=== PATIENT | female | born 1995 | race Caucasian/White ===

== ENCOUNTER 2022-04-22 16:39 | Observation (INO) | payer MEDICAID, SELFPAY ==
[2022-04-22] VITALS (24 sets, daily range): BP systolic 85–133; BP diastolic 60–91; PULSE 66–121; RESP 15–31; TEMP 36.4–37.4; O2SAT 93–98
--- NOTE | 2022-04-22 16:30 | RT.EKG_ITS ---
APPROVED REPORT Exam: Resting ECG Reason for Exam: chest pain, sob Patient Location: E HR:118 bpm ECG Measurements Heart Rate 118 AXIS [place] 122 P 53 QRSd 78 QRS 74 QT 300 T 38 QTc 421 Conclusion Sinus tachycardia...rate> 99 Low voltage, precordial leads...precordial leads <1.0mV ST elev, probable normal early repol pattern...ST elevation, age<[address] Physician: ST elevation in lateral leads, no recip depression. Q wave in III
--- NOTE | 2022-04-22 17:00 | DI.CT_ITS ---
Exam(s) CT CHEST PE CTA EXAM: CT CHEST PE CTA CLINICAL HISTORY: sob, cp , r/o clot. TECHNIQUE: Imaging Protocol: Axial CT angiography was performed with multi-slice acquisition and mu lti-planar reconstructions as well as axial, coronal and sagittal MIP reconstructions. CONTRAST MATERIAL: Intravenous: Omnipaque 350 Contrast volume:100 ml COMPARISON: No exams were available for comparison FINDINGS: Exam is limited by motion. Pulmonary Arteries: No evidence of filling defect to suggest pulmonary emboli. Tracheobronchial tree: Patent where visualized. Mediastinum and [place]: No dominant adenopathy Pulmonary parenchyma: No consolidation or dominant measurable mass. Pleura: No effusion or pneumothorax. Heart: The heart is not dilated. No coronary artery calcifications are seen. There is a pericardial e ffusion, small to moderate in size. Aorta: Thoracic aorta non-dilated. No aneurysm. No dissection. Upper abdomen: Liver is enlarged with marked fatty infiltration. Question of wall thickening of the distal esophagus. Bones: Unremarkable for age. IMPRESSION: No evidence of pulmonary embolism. Small to moderate-sized pericardial effusion. Question of thickening of the wall of the distal esophagus. RADIATION DOSE DELIVERED: 1,349.41mGy.cm Total DLP DATA REPOSITORY: All CT scans at this facility are submitted to the National Radiology Data Registry (NRDR) Dose Index Registry (DIR) with the [employer] (ACR). RADIATION OPTIMIZATION: All CT scans at this facility use at least one of these dose optimization te chniques: automated exposure control; mA and/or kV adjustment per patient size (includes targeted exa ms where dose is matched to clinical indication); or iterative reconstruction.
[2022-04-22 18:27] LABS: Absolute Eosinophil Count 1.23 10^3/uL (0.0-0.7); Absolute Lymphocyte Count 3.28 10^3/uL (1.2-3.4); Basophils % 0.3; Eosinophils % 8.5; HCT 39.7 % (36.0-46.0); HGB 13.8 g/dL (11.2-15.7); Immature Grans % 0.7; Lymphocytes % 22.7; MCH 29.3 pg (27.0-33.0); MCHC 34.8 % (32.0-36.0); MCV 84 fL (80-95); MPV 9.3 fL (8.0-11.0); Monocytes % 7.1; Neutrophils % 60.7; Platelet Count 427 10^3/uL (130-400); RBC 4.71 10^6/uL (3.93-5.22); RDW 12.6 % (11.7-14.6); RDW-SD 37.8 fL; WBC 14.44 10^3/uL (4.4-10.8)
[2022-04-22 18:28] LABS: Absolute Basophil Count 0.04 10^3/uL (0.0-0.2); Absolute Monocyte Count 1.03 10^3/uL (0.1-0.8); Absolute Neutrophil Count 8.77 10^3/uL (1.2-6.7)
[2022-04-22 18:49] LABS: ALT 118 U/L (14-59); AST 68 U/L (15-37); Albumin 4.1 g/dL (3.4-5.0); Alkaline Phosphatase 101 U/L (46-116); Anion Gap 13.5 mmol/L (3-11); BUN 8 mg/dL (7-18); Bilirubin, Total 0.7 mg/dL (0.2-1.0); CO2 23.5 mmol/L (21.0-32.0); CREATININE 0.8 mg/dL (0.55-1.02); Calcium 9.6 mg/dL (8.5-10.1); Chloride 101 mmol/L (98-107); Estimated GFR 102.22 (mL/min/1.73m2); Glucose 112 mg/dL (74-106); Potassium 3.8 mmol/L (3.5-5.1); Sodium 138 mmol/L (136-145); Total Protein 8.3 g/dL (6.4-8.2)
[2022-04-22 18:51] LABS: Troponin I 5953 ng/L (<or=60)
[2022-04-22 18:52] LABS: Bilirubin Small (Negative); Blood Trace-intact (Negative); Clarity Sl Cloudy (Clear); Glucose Negative (Negative); Ketones Trace mg/dL (Negative); Leukocyte Esterase Negative (Negative); Nitrite Negative (Negative); Specific Gravity >= 1.030 (1.005-1.025); Urobilinogen 0.2 EU/dL (Up TO 0.2)
[2022-04-22] MEDS: Aspirin 81 MG CHEW 324 MG CH (19:04)
[2022-04-22 19:07] LABS: Bacteria Few HPF (Negative); C & S Indicated? No/Sq. Contamination; Crystals Negative HPF (Negative); Epithelial Cells Many HPF (Negative); Mucus Heavy (Negative)
[2022-04-22] MEDS: Normal Saline 1,000 ML 1000 ML IV (19:33)
[2022-04-22] MEDS: Omnipaque 350 MG/ML 100 ML BTL IJ (19:51)
[2022-04-22] MEDS: Normal Saline Flush 10 ML SYR IVP (19:51)
[2022-04-22] MEDS: nitroGLYcerin 0.4 MG TAB (19:54)
[2022-04-22 20:25] LABS: Troponin I 5649 ng/L (<or=60)
[2022-04-22] MEDS: MORPHine 4 MG/ML SYR IVP (20:52)
[2022-04-22] MEDS: cefTRIAXone 2 GM/50 ML BAG IVPB (20:52)
--- NOTE | 2022-04-22 21:00 | RT.EKG_ITS ---
APPROVED REPORT Exam: Resting ECG Reason for Exam: vagal episode Patient Location: E HR:100 bpm ECG Measurements Heart Rate 100 AXIS [place] 129 P 83 QRSd 80 QRS 82 QT 337 T 59 QTc 435 Conclusion Sinus tachycardia...rate> 99 Physician: minimal elevation in inferior and lateral leads, likely pericarditis related. no recip dep ressions
--- NOTE | 2022-04-22 21:15 | W.ED.GENAD ---
Discharge Plan Disposition Patient Disposition: [facility] INPATIENT Condition: Serious Discharge Details Chief Complaint: RespSymp Clinical Impression: Non-ST elevation AR (NSTEMI), Myocarditis, Pericarditis Admit Date/Time: 04/22/22 22:46 Admit Provider: Soren Oseguera Attending Provider: Soren Oseguera Primary Care Provider: Unknown,Unknown ED Provider: Amauri Calhoun Discharge Data Discharge Date/Time-TO BE ENTERED AT DEPARTURE: 04/22/22 23:14 Medical Decision Making This is a 27-year-old female with no significant past medical history aside for hypertension and mood disorder for which she takes lithium, who presents today for chest pain and shortness of breath. Patient states that about 4 days ago she developed the symptoms, at the same time she had some swelling in her right leg. At that time she went to [facility], and while there she had a work-up. Per the patient her D-dimer was positive, but they did an ultrasound of her lower extremity which showed no evidence of DVT. Unfortunately she was a challenging IV stick and they were not able to get an IV for CTA for chest. Patient eventually left the emergency department. Her chest pain and shortness of breath continued, and she came to [facility] today for further assessment. Pain is made worse with breathing. Shortness of breath is made worse with activity. Pain is made worse when lying back. Minimally improved by sitting up. She denies any vomiting or diarrhea. She does have a family history positive for pulmonary emboli from her mother. She denies any personal history of blood clots. Family history of cardiac disease is present but not at a young age. She denies any recent long trips surgeries or procedures. She does not use exogenous estrogen. She denies any recent flulike symptoms, runny nose or congestion. Exam is relatively unremarkable, there is mild chest wall tenderness, but lungs are otherwise clear. No Osler nodes or Janeway lesions. No signs of an upper respiratory infection. No sore throat runny nose or congestion. No calf tenderness. Patient's heart rate is notably elevated, initially she was in the 140s to 150s when she arrived. EKG shows sinus rhythm with somewhat diffuse ST elevations, but does not meet criterion for STEMI with no evidence of reciprocal depressions of significance. Symptoms appear slightly more consistent with pericarditis on EKG however EKG findings are still concerning. Differential includes pulmonary embolism, pericarditis, potentially myocarditis with her elevated heart rate, and less likely ACS. Patient denies any IV or illicit drug use whatsoever. We will evaluate for these etiologies, monitor closely and reassess. Patient's work-up has returned, with some notably unexpected results. CTA is negative for anything of significance aside from mild esophagitis. No evidence of pulmonary embolism. White count is elevated at 14. Platelets are slightly high. No bandemia. Mild left shift. No lymphocytosis. Electrolytes normal, renal function good. Mild transaminitis. Troponin notably elevated at 5900. Urinalysis does appear to be dirty but does have elevated white cells. Potential concern for infection. Will give broad-spectrum antibiotics secondary to the patient's notably ill nature and administer Zosyn. Repeat EKG showed slight normalization's of some of the ST elevations. [facility] cardiology was consulted and I discussed the case with Dr. Terry. He does agree with aspirin and heparinization. Recommends echo and cardiac MRI if available. COVID test is negative. Patient's heart rate improved with fluids, pain did slightly improve with aspirin but minimally. Symptoms at this time with a notably elevated troponin are most concerning for myocarditis with potential pericarditis. Uncertain as to what etiology started is still. We did contact both [facility] and [facility] after transfer, and neither facility is able to accept at this time. [facility] cardiology does feel that admission at our hospital would be reasonable however transfer should be we discussed if the patient's clinical status changes or worsens. Discussed the case with Dr. Oseguera, he agrees with the assessment and plan and will admit. I have extensively reviewed the treatment plan with the patient. I have addressed all patient concerns at this time. I have also discussed the plan with the admitting physician and they agree with the current assessment and plan and have agreed to assume responsibility for the patient. All parties demonstrate verbal understanding and agreement with our assessment and plan at this time. The documentation in this chart was dictated using [employer] dictation software. Please excuse any dictation errors. HPI General Date/Time Provider Initiated Documentation: 04/22/22 17:07. HPI Narrative: This is a 27-year-old female with no significant past medical history aside for hypertension and mood disorder for which she takes lithium, who presents today for chest pain and shortness of breath. Patient states that about 4 days ago she developed the symptoms, at the same time she had some swelling in her right leg. At that time she went to [facility], and while there she had a work-up. Per the patient her D-dimer was positive, but they did an ultrasound of her lower extremity which showed no evidence of DVT. Unfortunately she was a challenging IV stick and they were not able to get an IV for CTA for chest. Patient eventually left the emergency department. Her chest pain and shortness of breath continued, and she came to [facility] today for further assessment. Pain is made worse with breathing. Shortness of breath is made worse with activity. Pain is made worse when lying back. Minimally improved by sitting up. She denies any vomiting or diarrhea. She does have a family history positive for pulmonary emboli from her mother. She denies any personal history of blood clots. Family history of cardiac disease is present but not at a young age. She denies any recent long trips surgeries or procedures. She does not use exogenous estrogen. She denies any recent flulike symptoms, runny nose or congestion. Related Data Allergies Allergy/AdvReac Type Severity Reaction Status Date / Time No Known Allergies Allergy Unverified 04/23/22 06:23 General Stated Complaint: RespSymp MIMI: 2 Review of Systems All systems reviewed & are unremarkable except as noted in HPI and below PFSH All Active Problems (Updated 04/23/22 @ 14:55 by Amauri Calhoun DO) Non-ST elevation AR (NSTEMI) (Acute) Myocarditis (Acute) Pericarditis (Acute) Chest pain (Acute) Medical History Hypertension Family History Mother Diabetes Father Diabetes Other Hyperlipidemia Hypertension Social History Smoking/Tobacco Use Status: Never Smoking risk assessment performed?: Yes Alcohol Intake: never Substance use type: does not use Do you feel safe at home: Yes Do you feel safe in your relationship?: Yes Exam Narrative Exam Narrative: 1.Const: Well-nourished, Well-developed, appearing stated age 2.Eyes: PERRL, no conjunctival injection, and symmetrical lids. 3.ENT: Atraumatic external nose and ears. Moist MM. Neck: Symmetric, trachea midline, No thyromegaly. 4.CVS: +S1/S2, No murmurs or gallops. Peripheral pulses 2+ and equal in all extremities. Brisk capillary refill in all extremities. 5.RESP: Unlabored respiratory effort. Clear to auscultation bilaterally. No wheezes rales or rhonchi. Anterior chest wall tenderness on palpation to the left of the sternum. 6.GI: Soft, Nontender/Nondistended, No hepatosplenomegaly. No guarding or rebound. 7.MSK: Normocephalic/Atraumatic, Extremities w/o deformity or ttp No cyanosis or clubbing, Normal movement of all extremities. No significant pitting edema in the lower extremities. No calf tenderness bilaterall Mild reproducibley. 8.Skin: Warm, Dry. No rashes or lesions. No evidence of Osler nodes or Janeway lesions. 9.Neuro: circular shear operator II-XII grossly intact. Sensation grossly intact, no focal neurologic deficits. 10.Psych: (AAO) x3. Appropriate mood and affect Course Vital Signs Vital signs: Vital Signs Temperature 36.4 C L 04/22/22 16:44 Pulse 121 H 04/22/22 16:44 Respiratory Rate 20 04/22/22 16:44 Blood Pressure 105/91 H 04/22/22 16:44 Pulse Oximetry 97 04/22/22 16:44 Temperature 37.4 C 04/22/22 17:11 Temperature Source Skin 04/22/22 17:11 Pulse 120 H 04/22/22 17:11 Respiratory Rate 24 04/22/22 17:11 Respiratory Effort Non-Labored 04/22/22 21:13 Respiratory Depth Normal 04/22/22 18:43 Respiratory Pattern Normal 04/22/22 18:43 Blood Pressure 131/77 04/22/22 17:11 Blood Pressure Position Sitting 04/22/22 16:44 Pulse Oximetry 95 04/22/22 17:11 Oxygen Delivery Method Room Air 04/22/22 18:43 Oxygen Flow Rate 0 04/22/22 18:43 Pain Level 7 04/22/22 20:52 Lab/Test Results Lab/Test Results: Laboratory Tests Range/Units 04/22/22 04/22/22 04/22/22 18:00 18:00 18:30 WBC (4.4-10.8) 10^3/uL 14.44 H RBC (3.93-5.22) 10^6/uL 4.71 Hgb (11.2-15.7) g/dL 13.8 Hct (36.0-46.0) % 39.7 MCV (80-95) fL 84 MCH (27.0-33.0) pg 29.3 MCHC (32.0-36.0) % 34.8 RDW (11.7-14.6) % 12.6 Plt Count (130-400) 10^3/uL 427 H MPV (8.0-11.0) fL 9.3 Immature Gran % 0.7 Neutrophils % 60.7 Lymphocytes % 22.7 Monocytes % 7.1 Eosinophils % 8.5 Basophils % 0.3 Nucleated RBC % (0.0-0.3) % 0.0 Absolute Neutrophils (1.2-6.7) 10^3/uL 8.77 H Absolute Lymphocytes (1.2-3.4) 10^3/uL 3.28 Absolute Monocytes (0.1-0.8) 10^3/uL 1.03 H Absolute Eosinophils (0.0-0.7) 10^3/uL 1.23 H Absolute Basophils (0.0-0.2) 10^3/uL 0.04 Sodium (136-145) mmol/L 138 Potassium (3.5-5.1) mmol/L 3.8 Chloride (98-107) mmol/L 101 Carbon Dioxide (21.0-32.0) mmol/L 23.5 Anion Gap (3-11) mmol/L 13.5 H BUN (7-18) mg/dL 8 Creatinine (0.55-1.02) mg/dL 0.8 Est GFR (CKD-EPI 2020) (mL/min/1.73m2) 102.22 Glucose (74-106) mg/dL 112 H Calcium (8.5-10.1) mg/dL 9.6 Total Bilirubin (0.2-1.0) mg/dL 0.7 AST (15-37) U/L 68 H ALT (14-59) U/L 118 H Alkaline Phosphatase (46-116) U/L 101 Troponin I (<or=60) ng/L 5953 H* Total Protein (6.4-8.2) g/dL 8.3 H Albumin (3.4-5.0) g/dL 4.1 Urine Color (Yellow) Dian Urine Clarity (Clear) Sl Cloudy Urine pH (5-8) 6.0 Ur Specific [place] (1.005-1.025) >= 1.030 H Urine Protein (Negative) mg/dL 30 H Urine Ketones (Negative) mg/dL Trace H Urine Blood (Negative) Trace-intact H Urine Nitrite (Negative) Negative Urine Bilirubin (Negative) Small H Urine Urobilinogen (Up TO 0.2) EU/dL 0.2 Ur Leukocyte Esterase (Negative) Negative Urine RBC (0-2) HPF 10-20 H Urine WBC (0-5) HPF 10-20 H Ur Epithelial Cells (Negative) HPF Many Urine Crystals (Negative) HPF Negative Urine Bacteria (Negative) HPF Few Urine Mucus (Negative) Heavy Ur Culture Indicated? No/Sq. Contamination Urine Glucose (Negative) mg/dL Negative Range/Units 04/22/22 19:47 WBC (4.4-10.8) 10^3/uL RBC (3.93-5.22) 10^6/uL Hgb (11.2-15.7) g/dL Hct (36.0-46.0) % MCV (80-95) fL MCH (27.0-33.0) pg MCHC (32.0-36.0) % RDW (11.7-14.6) % Plt Count (130-400) 10^3/uL MPV (8.0-11.0) fL Immature Gran % Neutrophils % Lymphocytes % Monocytes % Eosinophils % Basophils % Nucleated RBC % (0.0-0.3) % Absolute Neutrophils (1.2-6.7) 10^3/uL Absolute Lymphocytes (1.2-3.4) 10^3/uL Absolute Monocytes (0.1-0.8) 10^3/uL Absolute Eosinophils (0.0-0.7) 10^3/uL Absolute Basophils (0.0-0.2) 10^3/uL Sodium (136-145) mmol/L Potassium (3.5-5.1) mmol/L Chloride (98-107) mmol/L Carbon Dioxide (21.0-32.0) mmol/L Anion Gap (3-11) mmol/L BUN (7-18) mg/dL Creatinine (0.55-1.02) mg/dL Est GFR (CKD-EPI 2020) (mL/min/1.73m2) Glucose (74-106) mg/dL Calcium (8.5-10.1) mg/dL Total Bilirubin (0.2-1.0) mg/dL AST (15-37) U/L ALT (14-59) U/L Alkaline Phosphatase (46-116) U/L Troponin I (<or=60) ng/L 5649 H* Total Protein (6.4-8.2) g/dL Albumin (3.4-5.0) g/dL Urine Color (Yellow) Urine Clarity (Clear) Urine pH (5-8) Ur Specific [place] (1.005-1.025) Urine Protein (Negative) mg/dL Urine Ketones (Negative) mg/dL Urine Blood (Negative) Urine Nitrite (Negative) Urine Bilirubin (Negative) Urine Urobilinogen (Up TO 0.2) EU/dL Ur Leukocyte Esterase (Negative) Urine RBC (0-2) HPF Urine WBC (0-5) HPF Ur Epithelial Cells (Negative) HPF Urine Crystals (Negative) HPF Urine Bacteria (Negative) HPF Urine Mucus (Negative) Ur Culture Indicated? Urine Glucose (Negative) mg/dL POC- Test(urine) Negative Procedures EJ/Peripheral Line Arm R: Time Out Performed: Yes Skin Cleansed in Sterile Fashion: Yes Size (gauge): 20 IV Secured and Dressing Applied: Yes Patient Tolerated Procedure: well and no complications Additional Comments: Candidate vein examined with linear array probe - confirmed collapsibility, lack of pulsatility, and proper anatomic location. Using aseptic technique, IV catheter inserted with flash of blood noted, flow of venous blood confirmed. Flushes easily and without pain. No hematoma or complications noted. IV secured. Patient tolerated well. Critical Care Time Critical Care Time Critical Care Time: Yes Total Critical Care Time: 45 Attestation: Upon my evaluation, this patient had a high probability of imminent or life-threatening deterioration, which required my direct attention, intervention, and personal management. I have personally provided 45 minutes of critical care time exclusive of time spent on separately billable procedures. Time includes review of laboratory data, radiology results, discussion with consultants, and monitoring for potential decompensation. Interventions were performed as documented.
--- NOTE | 2022-04-22 21:16 | DI.VRAD_ITS ---
PROCEDURE INFORMATION: Exam: CTA Chest With Contrast Exam date and time: 04/22/2022 7:55 PM Age: 27 years old Clinical indication: Other: SOB, cp, R/O clot TECHNIQUE: Imaging protocol: Computed tomographic angiography of the chest with contrast. 3D rendering (Not supervised by radiologist): MIP and/or 3D reconstructed images were created by the technologist. Radiation optimization: All CT scans at this facility use at least one of these dose optimization techniques: automated exposure control; mA and/or kV adjustment per patient size (includes targeted exams where dose is matched to clinical indication); or iterative reconstruction. Contrast material: OMNIPAQUE 350; Contrast volume: 150 ml; Contrast route: INTRAVENOUS (IV); COMPARISON: No relevant prior studies available. FINDINGS: Pulmonary arteries: Normal. No pulmonary emboli. Aorta: Unremarkable. No aortic aneurysm. No aortic dissection. Lungs: Unremarkable. No consolidation. No masses. Pleural spaces: Unremarkable. No pneumothorax. No pleural effusion. Heart: Mild cardiomegaly. Small pericardial effusion. No coronary artery calcification. Mediastinal space: Mild distal esophageal wall thickening, suggestive of esophagitis. Lymph nodes: Unremarkable. No enlarged lymph nodes. Bones/joints: Unremarkable. No acute fracture. Soft tissues: Unremarkable. IMPRESSION: 1. Mild distal esophageal wall thickening, suggestive of esophagitis. 2. Small pericardial effusion. Dictated and Authenticated by: Soren Jimenes MD. Ordering:ODETTE Baugh MD
[2022-04-22] MEDS: PIPERACILLIN/TAZO 3.375 GM in Normal Saline 50 ML IVPB (22:20)
[2022-04-22 22:28] LABS: PTT Activated 25.4 sec (21.0-27.5)
--- NOTE | 2022-04-22 22:32 | HPE_ITS ---
Date of service: 04/22/22 Time of Service: 22:32 Assessment and Plan Assessment and plan (1) Chest pain: Status: Acute Assessment and plan: Not entirely clear at this point but I believe that myopericarditis is the most likely diagnosis here, presumably, or at least most likely, of viral origin.. Will trend troponins, obtain ECHO and, if available, cardiac MRI and treat with full dose NSAIDs empirically. Per [facility] will continue heparin in the unlikely event this constitutes ACS, but the overall clinical picture suggests not. History of Present Illness History of Present Illness Chief Complaint: CP Narrative: 27 female seen [place] 3 days [employer] for SOB, left w/o diagnosis she states. Returns here with 2 days of chest pain, described variably as a tightness or pressure, worse with recumbency. No SOB at this point. W/U in ER of note for EKG showing concave downward ST elevations inferiorly and in V6, with flattening TW V1-2 (no prior) and troponin 5900. CTA negative for PE, shows small pericardial effusion. Case reveiwed with [facility] cardiology advises heparin, trend trop and cardiac MRI and ECHO. I was asked to evaluate for admission. Patient is unvaccinated, COVID is pending. Patient states she took Motrin 600 at home with good relief, albeit temporary. Here in ER received NTG w/o effect, the MS, which caused a vagal reaction. Also received dose of Zosyn for pyuria, though squamous contamination. No urinary symptoms. Review of Systems Narrative: per HPI PFSH All Active Problems (Updated 04/22/22 @ 22:42 by Soren Oseguera MD) Chest pain (Acute) Medical History Hypertension Family History Mother Diabetes Father Diabetes Other Hyperlipidemia Hypertension Social History Smoking/Tobacco Use Status: Never Smoking risk assessment performed?: Yes Alcohol Intake: never Substance use type: does not use Do you feel safe at home: Yes Do you feel safe in your relationship?: Yes Exam Narrative Exam Narrative: 122/72, 107, 37.4, 28, 95% RA. HEENT atraumatic; neck supple; lungs clear; heart tachy/regular, sounds obscured by ambient noise; abdomen soft and NT; ext remities w/o edema; neuro Ox3, non-focal Results Labs Result diagrams: 04/22/22 18:00 04/22/22 18:00 Labs: Laboratory Results - last 24 hr 04/22/22 04/22/22 04/22/22 18:00 18:00 18:15 WBC 14.44 H RBC 4.71 Hgb 13.8 Hct 39.7 MCV 84 MCH 29.3 MCHC 34.8 RDW 12.6 Plt Count 427 H MPV 9.3 Immature Gran % 0.7 Neutrophils % 60.7 Lymphocytes % 22.7 Monocytes % 7.1 Eosinophils % 8.5 Basophils % 0.3 Nucleated RBC % 0.0 Absolute Neutrophils 8.77 H Absolute Lymphocytes 3.28 Absolute Monocytes 1.03 H Absolute Eosinophils 1.23 H Absolute Basophils 0.04 APTT 25.4 Sodium 138 Potassium 3.8 Chloride 101 Carbon Dioxide 23.5 Anion Gap 13.5 H BUN 8 Creatinine 0.8 Est GFR (CKD-EPI 2020) 102.22 Glucose 112 H Calcium 9.6 Total Bilirubin 0.7 AST 68 H ALT 118 H Alkaline Phosphatase 101 Troponin I 5953 H* Total Protein 8.3 H Albumin 4.1 Urine Color Urine Clarity Urine pH Ur Specific [place] Urine Protein Urine Ketones Urine Blood Urine Nitrite Urine Bilirubin Urine Urobilinogen Ur Leukocyte Esterase Urine RBC Urine WBC Ur Epithelial Cells Urine Crystals Urine Bacteria Urine Mucus Ur Culture Indicated? Urine Glucose COVID-19 Source 04/22/22 04/22/22 04/22/22 18:30 19:47 21:50 WBC RBC Hgb Hct MCV MCH MCHC RDW Plt Count MPV Immature Gran % Neutrophils % Lymphocytes % Monocytes % Eosinophils % Basophils % Nucleated RBC % Absolute Neutrophils Absolute Lymphocytes Absolute Monocytes Absolute Eosinophils Absolute Basophils APTT Sodium Potassium Chloride Carbon Dioxide Anion Gap BUN Creatinine Est GFR (CKD-EPI 2020) Glucose Calcium Total Bilirubin AST ALT Alkaline Phosphatase Troponin I 5649 H* Total Protein Albumin Urine Color Dian Urine Clarity Sl Cloudy Urine pH 6.0 Ur Specific [place] >= 1.030 H Urine Protein 30 H Urine Ketones Trace H Urine Blood Trace-intact H Urine Nitrite Negative Urine Bilirubin Small H Urine Urobilinogen 0.2 Ur Leukocyte Esterase Negative Urine RBC 10-20 H Urine WBC 10-20 H Ur Epithelial Cells Many Urine Crystals Negative Urine Bacteria Few Urine Mucus Heavy Ur Culture Indicated? No/Sq. Contamination Urine Glucose Negative COVID-19 Source Nasopharynx Last Vital Signs Temp 37.4 C 04/22/22 17:11 Pulse 107 H 04/22/22 21:31 Resp 28 H 04/22/22 21:31 BP 122/72 04/22/22 21:31 Pulse Ox 95 04/22/22 21:14
[2022-04-22 22:35] LABS: Source Nasopharynx
[2022-04-22 23:07] LABS: COVID-19 PCR Negative (Negative)
[2022-04-23] VITALS (51 sets, daily range): BP systolic 112–120; BP diastolic 67–93; PULSE 72–115; RESP 14–18; TEMP 35.9–36.8; O2SAT 96–98
[2022-04-23] MEDS: LORazepam 1 MG TAB PO (00:11)
--- NOTE | 2022-04-23 07:00 | RT.EKG_ITS ---
APPROVED REPORT Exam: Resting ECG Reason for Exam: Patient Location: I HR:107 bpm ECG Measurements Heart Rate 107 AXIS [place] 122 P 57 QRSd 82 QRS 73 QT 315 T 49 QTc 421 Conclusion Sinus tachycardia...rate> 99 Borderline Q waves in inferior leads...Qs add to 80 mS in II III aVF Minimal ST depression...ST <-0.05mV in [address] elevation, inferior leads...ST >0.06mV, II III aVF
[2022-04-23 07:15] LABS: PTT Activated 29.6 sec (21.0-27.5)
[2022-04-23 07:29] LABS: Troponin I 4718 ng/L (<or=60)
[2022-04-23] MEDS: Ibuprofen 800 MG TAB PO ×2 (08:39→13:42)
--- NOTE | 2022-04-23 10:09 | NUR.NOTE ---
Offered patient things to do AM care with. Patient politely refused at this time as her is going to bring things for her to use a little later on today. RN notified. Nursing Note:
[2022-04-23] MEDS: Normal Saline 1,000 ML 1000 ML IV (13:31)
[2022-04-23] MEDS: Colchicine 0.6 MG TAB 1.2 MG PO (13:42)
--- NOTE | 2022-04-23 14:06 | W.PM.DS.N ---
Date of service: 04/23/22 Time of Service: 14:06 DS: Diagnosis Discharge Diagnosis (1) Chest pain: Status: Acute Discharge Plan Disposition Patient Disposition: [facility] Condition: Serious Discharge Details Reason For Visit: Pericarditis, Myocarditis, Pericardial Effusion Admit Date/Time: 04/22/22 22:46 Admit Provider: Soren Oseguera Attending Provider: Soren Oseguera Primary Care Provider: Unknown,Unknown Hospital Course Hospital Course: This is a 27 female seen at [facility] ED 3 days [employer] for SOB, left w/o diagnosis she states. Presented to [facility] with 2 days of chest pain, described variably as a tightness/pleuritic or pressure that worseened with recumbency. No SOB at the time of presentation here. W/U in ER of note for EKG showing concave downward ST elevations inferiorly and in V6, with flattening TW V1-2 (no prior) and troponin 5900. CTA negative for PE but showed small pericardial effusion. Case reveiwed with [facility] [place] [place] cardiology advises heparin, trend trop and cardiac MRI and ECHO. Patient is unvaccinated, COVID was negative. Vital Signs Temperature ?36.4 C L ?04/22/22 16:44 Pulse ?121 H ?04/22/22 16:44 Respiratory Rate ?20 ?04/22/22 16:44 Blood Pressure ?105/91 H ?04/22/22 16:44 Pulse Oximetry ?97 ?04/22/22 16:44 WBC count 14.4. Hgb 13.8. Plt 427. Normal electrolytes. Creatinine 0.8. AST 68 ALT 118. Troponin 5953 > 5649 > 4718. Echocardiogram: Technically difficult study. Tachycardic during the study (110bpm). Moderate sized circumferential pericardial effusion. RA is not well seen. RV does appear to have impairment to diastolic filling in subcostal views. Significant variation in mitral inflow (34%) and IVC is borderline dilated (2.1cm) with minimal respiratory variation. Overall, the findings are concerning for early tamponade physiology. Left ventrical is normal in size and function with a LVEF of 57%. Patient stated she took Motrin 600 at home with good relief, albeit temporary. Here in ED received NTG w/o effect, then MS, which caused a vagal reaction. Also received dose of Zosyn for pyuria, though squamous contamination. No urinary symptoms. Zosyn not continued. Discussed patient with [facility] [place] [place] cardiology who recommended colchicine which was initiated (1.2mg po given with another schedule 12 hours later, then 0.6 daily). She also received another 1L NS bolus (2L administered in the ED). No bed available at [facility] [place] [place]. Discussed patient with Hospitalist physician at [place], [place]. A bed was available and she will be transferred for further care. DS: Summary Time Spent with Patient providing and/or coordinating discharge services: Greater than 30 minutes Status at Discharge Functional status at discharge: independent ambulation Overall status at discharge: patient is not back to baseline Mental Status: mental status grossly normal Speech and Movement: speech and movement normal Mood: anxious mood Affect: normal affect Exam Narrative Exam Narrative: Lying in bed. Pleasant and conversant. Const General: cooperative and no acute distress Nutritional Appearance: obese Orientation: alert and oriented x3 Eyes General: appearance normal, both eyes and all related structures Sclera: sclerae normal Neck Neck: no JVD Resp Effort & Inspection: normal respiratory effort Auscultation: clear to auscultation bilaterally Cardio Rate: tachycardic Rhythm: regular rhythm Heart Sounds: S1 normal, S2 normal, no murmurs and no rubs GI Inspection: obesity Palpation: soft and nontender Extrem General: no pedal edema and no calf tenderness Psych Appearance: grossly normal Mental Status: mental status grossly normal Speech and Movement: speech and movement normal Mood: anxious mood Affect: normal affect DS: Data Vitals/I&O Vitals and I&O: Vital Signs Temperature 36.7 C 04/23/22 12:00 Temperature Source Temporal Artery Scan 04/23/22 12:00 Pulse 115 H 04/23/22 12:00 Pulse 107 H 04/23/22 11:23 Respiratory Rate 14 04/23/22 08:00 Respiratory Effort 04/23/22 12:00 Respiratory Depth Normal 04/22/22 23:40 Respiratory Pattern Normal 04/23/22 12:00 Blood Pressure 118/93 H 04/23/22 11:23 Blood Pressure Mean 98 04/23/22 11:23 Blood Pressure Position Supine 04/23/22 12:00 Pulse Oximetry 96 04/23/22 08:00 Oxygen Delivery Method Room Air 04/23/22 08:00 Oxygen Flow Rate 0 04/23/22 08:00 Pain Level 2 04/23/22 12:00 Intake & Output 04/22/22 04/23/22 04/23/22 23:59 11:59 23:59 Intake Total 1094 / 1094 386.908 / 1207.458 820.55 / 1207.458 Balance 1094 / 1094 386.908 / 1207.458 820.55 / 1207.458 Weight 123.5 kg 123.5 kg Intake: IV 1094 / 1094 186.908 / 257.458 70.55 / 257.458 Oral 200 / 950 750 / 950 Data Completed and Pending Labs on day of discharge: Labs from last 24 hours 04/23/22 04/23/22 04/23/22 Unknown 13:30 12:30 WBC RBC Hgb Hct MCV MCH MCHC RDW Plt Count MPV Immature Gran % Neutrophils % Lymphocytes % Monocytes % Eosinophils % Basophils % Nucleated RBC % Absolute Neutrophils Absolute Lymphocytes Absolute Monocytes Absolute Eosinophils Absolute Basophils APTT Cancelled Sodium Potassium Chloride Carbon Dioxide Anion Gap BUN Creatinine Est GFR (CKD-EPI 2020) Glucose Calcium Total Bilirubin AST ALT Alkaline Phosphatase Troponin I C-Reactive Protein Pending Total Protein Albumin Urine Color Urine Clarity Urine pH Ur Specific [place] Urine Protein Urine Ketones Urine Blood Urine Nitrite Urine Bilirubin Urine Urobilinogen Ur Leukocyte Esterase Urine RBC Urine WBC Ur Epithelial Cells Urine Crystals Urine Bacteria Urine Mucus Ur Culture Indicated? Urine Glucose KRISHAN Titer Pending KRISHAN Titer 2 Pending KRISHAN Titer 3 Pending KRISHAN Interpretation Pending COVID-19 Source SARS-CoV-2 (PCR) 04/23/22 04/23/22 04/22/22 06:25 06:25 21:50 WBC RBC Hgb Hct MCV MCH MCHC RDW Plt Count MPV Immature Gran % Neutrophils % Lymphocytes % Monocytes % Eosinophils % Basophils % Nucleated RBC % Absolute Neutrophils Absolute Lymphocytes Absolute Monocytes Absolute Eosinophils Absolute Basophils APTT 29.6 H Sodium Potassium Chloride Carbon Dioxide Anion Gap BUN Creatinine Est GFR (CKD-EPI 2020) Glucose Calcium Total Bilirubin AST ALT Alkaline Phosphatase Troponin I 4718 H* C-Reactive Protein Total Protein Albumin Urine Color Urine Clarity Urine pH Ur Specific [place] Urine Protein Urine Ketones Urine Blood Urine Nitrite Urine Bilirubin Urine Urobilinogen Ur Leukocyte Esterase Urine RBC Urine WBC Ur Epithelial Cells Urine Crystals Urine Bacteria Urine Mucus Ur Culture Indicated? Urine Glucose KRISHAN Titer KRISHAN Titer 2 KRISHAN Titer 3 KRISHAN Interpretation COVID-19 Source Nasopharynx SARS-CoV-2 (PCR) Negative 04/22/22 04/22/22 04/22/22 19:47 18:30 18:15 WBC RBC Hgb Hct MCV MCH MCHC RDW Plt Count MPV Immature Gran % Neutrophils % Lymphocytes % Monocytes % Eosinophils % Basophils % Nucleated RBC % Absolute Neutrophils Absolute Lymphocytes Absolute Monocytes Absolute Eosinophils Absolute Basophils APTT 25.4 Sodium Potassium Chloride Carbon Dioxide Anion Gap BUN Creatinine Est GFR (CKD-EPI 2020) Glucose Calcium Total Bilirubin AST ALT Alkaline Phosphatase Troponin I 5649 H* C-Reactive Protein Total Protein Albumin Urine Color Dian Urine Clarity Sl Cloudy Urine pH 6.0 Ur Specific [place] >= 1.030 H Urine Protein 30 H Urine Ketones Trace H Urine Blood Trace-intact H Urine Nitrite Negative Urine Bilirubin Small H Urine Urobilinogen 0.2 Ur Leukocyte Esterase Negative Urine RBC 10-20 H Urine WBC 10-20 H Ur Epithelial Cells Many Urine Crystals Negative Urine Bacteria Few Urine Mucus Heavy Ur Culture Indicated? No/Sq. Contamination Urine Glucose Negative KRISHAN Titer KRISHAN Titer 2 KRISHAN Titer 3 KRISHAN Interpretation COVID-19 Source SARS-CoV-2 (PCR) 04/22/22 04/22/22 18:00 18:00 WBC 14.44 H RBC 4.71 Hgb 13.8 Hct 39.7 MCV 84 MCH 29.3 MCHC 34.8 RDW 12.6 Plt Count 427 H MPV 9.3 Immature Gran % 0.7 Neutrophils % 60.7 Lymphocytes % 22.7 Monocytes % 7.1 Eosinophils % 8.5 Basophils % 0.3 Nucleated RBC % 0.0 Absolute Neutrophils 8.77 H Absolute Lymphocytes 3.28 Absolute Monocytes 1.03 H Absolute Eosinophils 1.23 H Absolute Basophils 0.04 APTT Sodium 138 Potassium 3.8 Chloride 101 Carbon Dioxide 23.5 Anion Gap 13.5 H BUN 8 Creatinine 0.8 Est GFR (CKD-EPI 2020) 102.22 Glucose 112 H Calcium 9.6 Total Bilirubin 0.7 AST 68 H ALT 118 H Alkaline Phosphatase 101 Troponin I 5953 H* C-Reactive Protein Total Protein 8.3 H Albumin 4.1 Urine Color Urine Clarity Urine pH Ur Specific [place] Urine Protein Urine Ketones Urine Blood Urine Nitrite Urine Bilirubin Urine Urobilinogen Ur Leukocyte Esterase Urine RBC Urine WBC Ur Epithelial Cells Urine Crystals Urine Bacteria Urine Mucus Ur Culture Indicated? Urine Glucose KRISHAN Titer KRISHAN Titer 2 KRISHAN Titer 3 KRISHAN Interpretation COVID-19 Source SARS-CoV-2 (PCR) PFSH All Active Problems Chest pain (Acute) Medical History Hypertension Family History Mother Diabetes Father Diabetes Other Hyperlipidemia Hypertension Social History Smoking/Tobacco Use Status: Never Smoking risk assessment performed?: Yes Alcohol Intake: never Substance use type: does not use Do you feel safe at home: Yes Do you feel safe in your relationship?: Yes
--- NOTE | 2022-04-23 16:00 | RT.EKG_ITS ---
APPROVED REPORT Exam: Resting ECG Reason for Exam: CP Patient Location: I HR:102 bpm ECG Measurements Heart Rate 102 AXIS NM 133 P 71 QRSd 81 QRS 79 QT 326 T 47 QTc 425 Conclusion Sinus tachycardia...rate> 99 Borderline Q waves in inferior leads...Qs add to 80 mS in II III aVF
--- NOTE | 2022-04-23 16:10 | CHAPLAIN ---
I had a brief visit with Martha. She is originally from the [facility], and moved to [place] after she got because her is from there. She was on the phone with him telling him where he could find some of her clothes that she wanted him to bring in. Martha was pleasant and seemed to be comfortable being here. I will continue to visit.
[2022-04-23] MEDS: Ondansetron 4 MG/2 ML VIAL IVP (16:14)
[2022-04-23] MEDS: LORazepam 20 MG/10 ML VIAL IVP (16:16)
[2022-04-23 17:16] LABS: Troponin I 5066 ng/L (<or=60)
[2022-04-23 18:13] LABS: C-Reactive Protein 1.77 mg/dL (0.0-0.3)
--- NOTE | 2022-04-23 18:43 | PDOC.CMIN ---
- If Service Date Differs Date of service: 04/23/22 Time of Service: 18:43 Care Management Initial Assess REASON FOR HOSPITALIZATION:: Chest Pain PAST MEDICAL HISTORY/PAST SURGICAL HISTORY:: All Active Problems. Chest pain (Acute). Medical History. Hypertension PREVIOUS FUNCTIONAL STATUS/SOCIAL/FAMILY SUPPORTS:: Martha lives in [place] with her , Vince, and their four children who are 9, 4, 2, and 10months. 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 She is independent at baseline. CURRENT FUNCTIONAL STATUS:: Martha was lying in bed when CM met with her. She reported that she is not feeling well and is waiting to hear the results from her echo this morning. Per MD, she has been accepted in transfer to [facility], and will transport via EMS once a team is available. Martha stated that [facility] would have been her first choice, but she is happy to be able to transfer to get the care she needs, as it is not offered at [facility]. CM brought her a puzzle book and coloring pages to occupy her time, as she reported feeling anxious about waiting. CM will continue to follow. ADVANCE DIRECTIVES:: Not on file. Has patient been provided with info about the portal/API?: Yes Did the patient sign up for the portal?: No CODE STATUS:: Full Code INSURANCE COVERAGE / FINANCIAL ISSUES:: LAURE CURRENT HOME/COMMUNITY SERVICES/EQUIPMENT:: None. PRIMARY CARE PHYSICIAN:: not local POTENTIAL DISCHARGE NEEDS:: transfer to tertiary facility PATIENT/FAMILY EDUCATION NEEDS:: Review discharge instructions and limitations, discussion of self care needs including ask me three. ANTICIPATED BARRIERS TO DISCHARGE:: None. TRANSPORTATION:: Via EMS for acute transfer. PLAN:: Martha is accepted in transfer to [facility] for cardiology. She will transport via EMS once a team is available. She will follow up with her PCP and discharge plan of care. CM will continue to follow.
[2022-04-25 15:54] LABS: ANA Interpretation Negative (Negative)
== END 2022-04-23 17:29 ==
LOC: ER 23:16 → ICU 23:28
PROVIDERS: Family Medicine; Admitting Provider General Practice; Emergency Provider Student in an Organized Health Care Education/Training Program; Visit Provider General Practice
DX: I31.3 Pericardial effusion (noninflammatory) (principal); R06.02 Shortness of breath; R94.31 Abnormal electrocardiogram [ECG] [EKG]; R07.89 Other chest pain; I10 Essential (primary) hypertension; R74.8 Abnormal levels of other serum enzymes; Z79.899 Other long term (current) drug therapy; Z20.822 Contact with and (suspected) exposure to COVID-19; R79.1 Abnormal coagulation profile; Z82.49 Family history of ischemic heart disease and other diseases of the circulatory system; R74.01 Elevation of levels of liver transaminase levels
CPT/HCPCS: 36415; 36573; 71275; 80053; 81025; 87635; 93005; 96361; 96365; 96366; 96367; 96374; 96375; 99291; C8929; 81003; 81015; 84484; 85025; 85730; 86038; 86140; 93010; 99217; 99222; G0378; J2270; J2405; J2543; J3490